=== PATIENT | male | born 1950 | race Caucasian/White ===

== ENCOUNTER 2023-02-02 00:12 | Inpatient (IN) | payer MEDICARE, MEDICAID ==
[~2023-02-02] VITALS: Ht 162.6 cm; Wt 72.6 kg
[2023-02-02] VITALS (72 sets, daily range): BP systolic 54–128; BP diastolic 29–82
[2023-02-02] MEDS ORDERED: DOPAMINE 400MG/250ML PREMIX 250 ML IV STA (00:35)
[2023-02-02] MEDS ORDERED: NOREPINEPHRINE 8MG/250ML PMX 250 ML IV STA ×2 (00:35→04:48)
[2023-02-02] MEDS ORDERED: PIPERACILLIN/TAZ 3.375G PREMIX 50 ML IV ONE (00:45)
[2023-02-02] MEDS ORDERED: SODIUM CHLORIDE 0.9% 1,000 ML IV ONE ×2 (00:45)
[2023-02-02 00:54] LABS: HEMATOCRIT. 21.6 % (42.0-52.0); HEMOGLOBIN. 7.1 g/dL (14.0-18.0); MEAN CORPUSCULAR HEMOGLOBIN 30.5 pg (28.0-32.0); MEAN CORPUSCULAR VOLUME 92.4 fL (80.0-94.0); MEAN PLATELET VOLUME 11.5 fl (7.4-10.4); PLATELET 240 x1000/uL (130-400); RED BLOOD CELL COUNT 2.34 mill/uL (4.7-6.1)
[2023-02-02 01:18] LABS: CHLORIDE 98 mEq/L (98-107)
[2023-02-02 01:53] LABS: INR 1.4; PARTIAL THROMBOPLASTIN TIME 36.1 sec (23.4-31.0); PROTHROMBIN TIME 15.1 sec (9.6-11.0)
[2023-02-02] MEDS ORDERED: VANCOMYCIN 1G PREMIX 200 ML IV NR (02:15)
[2023-02-02] MEDS ORDERED: KCL 20MEQ/100ML PREMIX 100 ML IV ONE (02:45)
[2023-02-02] MEDS ORDERED: POTASSIUM CHLORIDE 20MEQ TABLET SR PO ONE (02:45)
[2023-02-02 03:14] LABS: PLATELET ESTIMATE NORMAL
[2023-02-02] MEDS: SODIUM CHLORIDE 0.9% 1,000 ML IV SCH ×2 (03:30→08:29)
[2023-02-02] MEDS ORDERED: ACETAMINOPHEN 325MG TABLET PO PRN ×2 (03:30)
[2023-02-02] MEDS ORDERED: MORPHINE SULFATE 2 MG/ML CPJ (NOT FOR IM USE) IV PRN (03:30)
[2023-02-02] MEDS ORDERED: DOCUSATE SODIUM 100MG CAPSULE PO PRN (03:30)
[2023-02-02] MEDS ORDERED: IPRATROPIUM/ALBUTEROL 0.5-3(2.5)MG/3ML NEB HHN PRN (03:30)
[2023-02-02] MEDS ORDERED: MAGNESIUM/ALUMINUM HYDROXIDE/SIMETHICONE 30ML UDC PO PRN (03:30)
[2023-02-02] MEDS ORDERED: PIPERACILLIN/TAZOBACTAM 3.375 G in DEXTROSE 5% WATER 50 ML IV SCH (03:30)
[2023-02-02] MEDS ORDERED: HYDROCODONE/ACETAMINOPHEN 5/325MG TABLET PO PRN (03:30)
[2023-02-02] MEDS ORDERED: POTASSIUM CHLORIDE 20MEQ TABLET SR PO NR (03:45)
[2023-02-02] MEDS ORDERED: KCL 20MEQ/100ML X 3 FOR TOTAL KCL 60MEQ/200ML IV SCH (03:45)
[2023-02-02] MEDS ORDERED: POTASSIUM CHLORIDE INJ 60 MEQ in DEXT 5% WATER 250 ML IV ONE (03:45)
[2023-02-02 04:17] LABS: PHOSPHORUS 6.1 mg/dL (2.5-4.9)
[2023-02-02 04:47] LABS: D-DIMER 4.27 mg/L FEU (<0.50); INR 1.5; PROTHROMBIN TIME 16.1 sec (9.6-11.0)
[2023-02-02] MEDS ORDERED: NOREPINEPHRINE 8MG/250ML PMX 250 ML IV NR (05:00)
[2023-02-02 05:10] LABS: CREATINE KINASE MB FRACTION 5.2 ng/mL (0.5-3.6)
[2023-02-02 06:20] LABS: VITAMIN B12 SERUM > 2000.0 pg/mL (211-911)
[2023-02-02 06:22] LABS: FOLIC ACID (FOLATE) SERUM > 20.00 ng/mL (>5.38)
[2023-02-02] MEDS ORDERED: LORAZEPAM 2MG/ML CPJ IV NR (06:45)
[2023-02-02 08:16] LABS: FERRITIN 2428 ng/mL (22-322)
[2023-02-02] MEDS: PIPERACILLIN/TAZOBACTAM 3.375G in DEXT 5% WATER 50ML IV SCH ×3 (08:29→22:02)
[2023-02-02] MEDS: PHENYLEPHRINE 50 MG in DEXT 5% WATER 245 ML IV PRN ×4 (08:31→22:47)
[2023-02-02] MEDS ORDERED: PANTOPRAZOLE SODIUM 40 MG/VIAL IV SCH (09:00)
[2023-02-02] MEDS ORDERED: TAMSULOSIN HCL 0.4MG SR CAPSULE PO SCH (09:00)
[2023-02-02] MEDS ORDERED: NOREPINEPHRINE 8MG/250ML PMX 250 ML IV PRN (09:00)
[2023-02-02] MEDS: NOREPINEPHRINE 8 MG in DEXTROSE 5% WATER 250 ML IV PRN ×4 (09:26→22:48)
[2023-02-02] MEDS: VASOPRESSIN 20 UNIT in SODIUM CHLORIDE 0.9% 99 ML IV PRN ×2 (09:27→17:48)
[2023-02-02] MEDS ORDERED: POTASSIUM CHLORIDE INJ 40 MEQ in DEXT 5% WATER 250 ML IV ONE (10:00)
[2023-02-02] MEDS: KCL 20MEQ/100ML X 3 FOR TOTAL KCL 60MEQ/200ML IV SCH ×3 (10:39→15:09)
[2023-02-02 11:25] LABS: BG BASE EXCESS -14.5 mmol/L (-2.0-2.0); BG CARBOXYHEMOGLOBIN 0.1 % (0.5-1.5); BG DEOXYHEMOGLOBIN 1.1 % (0.0-5.0); BG FRACTION INSPIRED OXYGEN 40; BG HCO3 ACT 10.3 mmol/L (22.0-26.0); BG METHEMOGLOBIN 0.2 % (0.0-1.5); BG OXYGEN SATURATION 98.9 % (92.0-98.5); BG OXYHEMOGLOBIN 98.6 % (94.0-97.0); BG PCO2 21.6 mmHg (35.0-45.0); BG PH 7.295 (7.350-7.450); BG PO2 161.5 mmHg (75.0-100.0); BG SAMPLE SITE RIGHT RADIAL; BG TOTAL HEMOGLOBIN 9.9 g/dL (12.0-18.0); BG VENT MODE MASK - SIMPLE
[2023-02-02 12:23] LABS: HEMATOCRIT 29.8 % (42.0-52.0); MEAN CORPUSCULAR HEMOGLOBIN 31.1 pg (28.0-32.0); MEAN CORPUSCULAR VOLUME 92.6 fL (80.0-94.0); PLATELET 257 x1000/uL (130-400); RED BLOOD CELL COUNT 3.22 mill/uL (4.7-6.1); RED CELL DISTRIBUTION WIDTH 25.7 % (11.6-14.6)
[2023-02-02] MEDS ORDERED: MIRT-89 MT (14:24)
[2023-02-02] MEDS ORDERED: FAMO20TA8 MT (14:24)
[2023-02-02] MEDS ORDERED: TAMS-11 MT (14:24)
[2023-02-02] MEDS ORDERED: MIRT-90 PO (14:24)
[2023-02-02] MEDS ORDERED: FURO20TA4 PO (14:24)
[2023-02-02] MEDS ORDERED: METO-293 MT (14:24)
[2023-02-02] MEDS ORDERED: LORA-250 MT (14:24)
[2023-02-02] MEDS ORDERED: ONDA8TAB59 PO (14:24)
[2023-02-02] MEDS: METOCLOPRAMIDE HCL 10MG/2ML VIAL IV SCH ×3 (15:44→23:41)
[2023-02-02] MEDS ORDERED: NALOXONE HCL 0.4MG/ML VIAL IV PRN (15:45)
[2023-02-02 15:52] LABS: CREATINE KINASE MB FRACTION 5.2 ng/mL (0.5-3.6)
[2023-02-02] MEDS ORDERED: MIDODRINE HCL 5MG TABLET PO SCH (17:00)
[2023-02-02 18:37] LABS: HEMATOCRIT 27.4 % (42.0-52.0); HEMOGLOBIN 9.1 g/dL (14.0-18.0)
[2023-02-02 19:03] LABS: CLARITY URINE TURBID (CLEAR); COLOR URINE DARK YELLOW (YELLOW); KETONES URINE NEGATIVE (NEGATIVE); LEUKOCYTE ESTERASE URINE 1+ (NEGATIVE); NITRITE URINE POSITIVE (NEGATIVE); OCCULT BLOOD URINE 1+ (NEGATIVE); PH URINE 5.5 (4.5-8.0); PROTEIN URINE 2+ (NEGATIVE); SPECIFIC GRAVITY URINE 1.017 (1.005-1.030)
[2023-02-02] MEDS: PANTOPRAZOLE SODIUM 40 MG/VIAL IV SCH (22:02)
[2023-02-02] MEDS: SODIUM BICARBONATE 100 MEQ in DEXTROSE 5% WATER 1,000 ML IV SCH (22:02)
[2023-02-02] MEDS: MIDODRINE HCL 5MG TABLET PO SCH (22:03)
[2023-02-03] VITALS (94 sets, daily range): BP systolic 65–151; BP diastolic 34–119
[2023-02-03 00:56] LABS: HEMATOCRIT 28.6 % (42.0-52.0); HEMOGLOBIN 9.5 g/dL (14.0-18.0)
[2023-02-03] MEDS: NOREPINEPHRINE 8 MG in DEXTROSE 5% WATER 250 ML IV PRN ×3 (03:21→16:53)
[2023-02-03] MEDS: PHENYLEPHRINE 50 MG in DEXT 5% WATER 245 ML IV PRN ×4 (03:34→18:54)
[2023-02-03] MEDS: VASOPRESSIN 20 UNIT in SODIUM CHLORIDE 0.9% 99 ML IV PRN ×2 (04:58→16:52)
[2023-02-03 05:34] LABS: BASOPHILS % 0.2 % (0.0-2.0); EOSINOPHILS % 0.2 % (0.0-5.0); HEMATOCRIT. 26.6 % (42.0-52.0); HEMOGLOBIN. 9.1 g/dL (14.0-18.0); LYMPHOCYTES % 10.9 % (20.0-50.0); MEAN CORPUSCULAR HEMOGLOBIN 31.1 pg (28.0-32.0); MEAN CORPUSCULAR VOLUME 90.5 fL (80.0-94.0); MEAN PLATELET VOLUME 11.5 fl (7.4-10.4); MONOCYTES % 8.4 % (2.0-8.0); NEUTROPHILS % 80.3 % (40.0-76.0); PLATELET 242 x1000/uL (130-400); RED BLOOD CELL COUNT 2.94 mill/uL (4.7-6.1); RED CELL DISTRIBUTION WIDTH 26.7 % (11.6-14.6)
[2023-02-03 05:53] LABS: CHLORIDE 98 mEq/L (98-107)
[2023-02-03] MEDS: PIPERACILLIN/TAZOBACTAM 3.375G in DEXT 5% WATER 50ML IV SCH ×3 (05:58→22:12)
[2023-02-03] MEDS: MIDODRINE HCL 5MG TABLET PO SCH ×3 (05:59→22:13)
[2023-02-03] MEDS: METOCLOPRAMIDE HCL 10MG/2ML VIAL IV SCH ×3 (06:00→17:00)
[2023-02-03 06:16] LABS: HDL CHOLESTEROL 11 mg/dL (40-59); LDL CHOLESTEROL 97 mg/dL (5-100)
[2023-02-03] MEDS: PANTOPRAZOLE SODIUM 40 MG/VIAL IV SCH ×2 (08:14→21:15)
[2023-02-03] MEDS ORDERED: DEXTROSE 50% WATER 50ML SYRINGE IV PRN (08:45)
[2023-02-03 09:31] LABS: PLATELET ESTIMATE NORMAL
[2023-02-03] MEDS: SODIUM BICARBONATE 100 MEQ in DEXTROSE 5% WATER 1,000 ML IV SCH (10:20)
[2023-02-03] MEDS: BLOOD SUGAR DIAGNOSTIC STRIP TEST SCH ×3 (11:30→21:12)
[2023-02-03] MEDS ORDERED: VANCOMYCIN 750MG PREMIX 150 ML IV NR (12:00)
[2023-02-03 12:15] LABS: HEMATOCRIT 25.8 % (42.0-52.0); HEMOGLOBIN 8.8 g/dL (14.0-18.0)
[2023-02-03] MEDS: INSULIN LISPRO 100 UNITS/ML SUBCUT SCH ×3 (12:38→21:00)
[2023-02-03] MEDS ORDERED: POTASSIUM CHLORIDE 20MEQ TABLET SR PO NR (13:15)
[2023-02-03] MEDS ORDERED: FUROSEMIDE 40MG/4ML VIAL IVP NR (13:30)
[2023-02-03] MEDS: LORAZEPAM 2MG/ML CPJ IV PRN (14:15)
[2023-02-03] MEDS ORDERED: POTASSIUM CHLORIDE INJ 40 MEQ in DEXT 5% WATER 250 ML IV ONE (14:30)
[2023-02-03] MEDS: KCL 20MEQ/100ML X 2 FOR TOTAL KCL 40MEQ/200ML IV SCH ×2 (16:52→18:49)
[2023-02-04] VITALS (85 sets, daily range): BP systolic 60–149; BP diastolic 31–107
[2023-02-04] MEDS: METOCLOPRAMIDE HCL 10MG/2ML VIAL IV SCH ×5 (00:04→23:49)
[2023-02-04] MEDS: PHENYLEPHRINE 50 MG in DEXT 5% WATER 245 ML IV PRN ×5 (00:15→21:23)
[2023-02-04] MEDS: SODIUM BICARBONATE 100 MEQ in DEXTROSE 5% WATER 1,000 ML IV SCH ×2 (02:58→18:09)
[2023-02-04 05:27] LABS: BASOPHILS % 0.1 % (0.0-2.0); EOSINOPHILS % 0.2 % (0.0-5.0); HEMATOCRIT. 25.1 % (42.0-52.0); HEMOGLOBIN. 8.5 g/dL (14.0-18.0); MEAN CORPUSCULAR HEMOGLOBIN 30.9 pg (28.0-32.0); MEAN CORPUSCULAR VOLUME 91.1 fL (80.0-94.0); MEAN PLATELET VOLUME 11.6 fl (7.4-10.4); MONOCYTES % 7.5 % (2.0-8.0); NEUTROPHILS % 82.2 % (40.0-76.0); PLATELET 137 x1000/uL (130-400); RED BLOOD CELL COUNT 2.75 mill/uL (4.7-6.1); RED CELL DISTRIBUTION WIDTH 26.6 % (11.6-14.6)
[2023-02-04] MEDS: VASOPRESSIN 20 UNIT in SODIUM CHLORIDE 0.9% 99 ML IV PRN ×2 (05:36→18:10)
[2023-02-04] MEDS: MIDODRINE HCL 5MG TABLET PO SCH ×3 (05:54→21:23)
[2023-02-04] MEDS: PIPERACILLIN/TAZOBACTAM 3.375G in DEXT 5% WATER 50ML IV SCH ×3 (05:55→21:22)
[2023-02-04] MEDS: BLOOD SUGAR DIAGNOSTIC STRIP TEST SCH ×4 (06:30→21:23)
[2023-02-04] MEDS: INSULIN LISPRO 100 UNITS/ML SUBCUT SCH ×4 (07:00→21:00)
[2023-02-04] MEDS ORDERED: POTASSIUM CHLORIDE 20MEQ TABLET SR PO NR (07:45)
[2023-02-04] MEDS: PANTOPRAZOLE SODIUM 40 MG/VIAL IV SCH ×2 (08:39→21:21)
[2023-02-04] MEDS: NOREPINEPHRINE 8 MG in DEXTROSE 5% WATER 250 ML IV PRN ×3 (08:40→18:11)
[2023-02-04] MEDS ORDERED: POTASSIUM CHLORIDE INJ 40 MEQ in DEXT 5% WATER 500 ML IV NR (10:30)
[2023-02-04] MEDS ORDERED: LIDOCAINE HCL 1% 10 MG/ML 10ML VIAL ONE (10:49)
[2023-02-04] MEDS: FLUDROCORTISONE ACETATE 0.1MG TABLET PO SCH (10:59)
[2023-02-04] MEDS ORDERED: HYDROCORTISONE SOD SUCCINATE 100 MG/2 ML VIAL IV SCH (14:00)
[2023-02-04] MEDS: METHYLPREDNISOLONE SOD SUCC 40 MG/ML VIAL IV SCH ×2 (16:53→21:22)
[2023-02-04] MEDS: LORAZEPAM 2MG/ML CPJ IV PRN (21:41)
[2023-02-05] VITALS (97 sets, daily range): BP systolic 35–179; BP diastolic 16–104
[2023-02-05 01:42] LABS: HEMATOCRIT 21.3 % (42.0-52.0); HEMOGLOBIN 7.2 g/dL (14.0-18.0)
[2023-02-05] MEDS ORDERED: NOREPINEPHRINE 16 MG in DEXT 5% WATER 242 ML IV PRN (02:06)
[2023-02-05] MEDS: PHENYLEPHRINE 50 MG in DEXT 5% WATER 245 ML IV PRN (02:10)
[2023-02-05] MEDS: NOREPINEPHRINE 8 MG in DEXTROSE 5% WATER 250 ML IV PRN (02:11)
[2023-02-05] MEDS: NOREPINEPHRINE 32 MG in DEXT 5% WATER 218 ML IV PRN ×3 (04:56→21:32)
[2023-02-05] MEDS: PIPERACILLIN/TAZOBACTAM 3.375G in DEXT 5% WATER 50ML IV SCH ×3 (05:26→20:53)
[2023-02-05] MEDS: METOCLOPRAMIDE HCL 10MG/2ML VIAL IV SCH ×3 (05:26→18:00)
[2023-02-05] MEDS: VASOPRESSIN 20 UNIT in SODIUM CHLORIDE 0.9% 99 ML IV PRN ×2 (05:26→16:51)
[2023-02-05] MEDS: METHYLPREDNISOLONE SOD SUCC 40 MG/ML VIAL IV SCH ×3 (05:27→21:24)
[2023-02-05] MEDS: MIDODRINE HCL 5MG TABLET PO SCH ×3 (05:28→22:00)
[2023-02-05 05:41] LABS: HEMATOCRIT. 24.4 % (42.0-52.0); MEAN CORPUSCULAR HEMOGLOBIN 30.5 pg (28.0-32.0); MEAN CORPUSCULAR VOLUME 92.8 fL (80.0-94.0); MEAN PLATELET VOLUME 12.9 fl (7.4-10.4); PLATELET 113 x1000/uL (130-400); RED BLOOD CELL COUNT 2.63 mill/uL (4.7-6.1); RED CELL DISTRIBUTION WIDTH 22.8 % (11.6-14.6)
[2023-02-05] MEDS: BLOOD SUGAR DIAGNOSTIC STRIP TEST SCH ×4 (06:30→19:46)
[2023-02-05] MEDS: SODIUM BICARBONATE 100 MEQ in DEXTROSE 5% WATER 1,000 ML IV SCH (06:40)
[2023-02-05] MEDS: INSULIN LISPRO 100 UNITS/ML SUBCUT SCH ×4 (07:00→20:54)
[2023-02-05 07:52] LABS: BG BASE EXCESS -19.7 mmol/L (-2.0-2.0); BG CARBOXYHEMOGLOBIN 0.5 % (0.5-1.5); BG DEOXYHEMOGLOBIN 1.7 % (0.0-5.0); BG FRACTION INSPIRED OXYGEN 21; BG HCO3 ACT 4.9 mmol/L (22.0-26.0); BG METHEMOGLOBIN 0.3 % (0.0-1.5); BG OXYGEN SATURATION 98.3 % (92.0-98.5); BG OXYHEMOGLOBIN 97.5 % (94.0-97.0); BG PCO2 10.7 mmHg (35.0-45.0); BG PH 7.275 (7.350-7.450); BG PO2 118.5 mmHg (75.0-100.0); BG SAMPLE SITE RIGHT RADIAL; BG TOTAL HEMOGLOBIN 8.6 g/dL (12.0-18.0); BG VENT MODE ROOM AIR
[2023-02-05] MEDS: PHENYLEPHRINE 100 MG in DEXT 5% WATER 240 ML IV PRN ×2 (07:57→16:51)
[2023-02-05] MEDS ORDERED: SODIUM BICARBONATE 8.4% 1 MEQ/ML 50ML SYR IV NR (08:00)
[2023-02-05] MEDS ORDERED: ALBUMIN HUMAN 25GM/100ML (25%) IV NR (08:15)
[2023-02-05 08:16] LABS: PLATELET ESTIMATE SLIGHTLY DECREASED
[2023-02-05] MEDS: FLUDROCORTISONE ACETATE 0.1MG TABLET PO SCH (09:07)
[2023-02-05] MEDS: PANTOPRAZOLE SODIUM 40 MG/VIAL IV SCH ×2 (09:07→20:54)
[2023-02-05] MEDS: SODIUM BICARBONATE 150 MEQ in DEXTROSE 5% WATER 1,000 ML IV SCH (09:17)
[2023-02-05 09:25] LABS: D-DIMER 5.72 mg/L FEU (<0.50); FIBRINOGEN 316 mg/dL (200-400)
[2023-02-05 09:51] LABS: INR > 10.0
[2023-02-05 09:52] LABS: PARTIAL THROMBOPLASTIN TIME 109.9 sec (23.4-31.0); PROTHROMBIN TIME > 100.0 sec (9.6-11.0)
[2023-02-05] MEDS: LORAZEPAM 2MG/ML CPJ IV PRN (10:35)
[2023-02-05] MEDS ORDERED: VANCOMYCIN 750MG PREMIX 150 ML IV SCH (11:00)
[2023-02-05] MEDS ORDERED: VANCOMYCIN 1G PREMIX 200 ML IV SCH (11:00)
[2023-02-05] MEDS ORDERED: PHYTONADIONE 10MG/ML AMP SUBCUT NR (12:30)
[2023-02-05] MEDS: FUROSEMIDE 40MG/4ML VIAL IVP SCH (14:28)
[2023-02-06] VITALS (94 sets, daily range): BP systolic 60–188; BP diastolic 26–97
[2023-02-06] MEDS: PHENYLEPHRINE 100 MG in DEXT 5% WATER 240 ML IV PRN ×3 (00:15→19:25)
[2023-02-06] MEDS: LORAZEPAM 2MG/ML CPJ IV PRN (00:25)
[2023-02-06] MEDS: METOCLOPRAMIDE HCL 10MG/2ML VIAL IV SCH ×4 (00:32→18:20)
[2023-02-06] MEDS: SODIUM BICARBONATE 150 MEQ in DEXTROSE 5% WATER 1,000 ML IV SCH ×2 (01:52→18:20)
[2023-02-06] MEDS: VASOPRESSIN 20 UNIT in SODIUM CHLORIDE 0.9% 99 ML IV PRN (03:29)
[2023-02-06] MEDS: PIPERACILLIN/TAZOBACTAM 3.375G in DEXT 5% WATER 50ML IV SCH ×2 (05:14→13:39)
[2023-02-06] MEDS: METHYLPREDNISOLONE SOD SUCC 40 MG/ML VIAL IV SCH ×3 (05:14→22:10)
[2023-02-06] MEDS: MIDODRINE HCL 5MG TABLET PO SCH ×3 (05:14→22:05)
[2023-02-06] MEDS: BLOOD SUGAR DIAGNOSTIC STRIP TEST SCH ×4 (05:14→22:00)
[2023-02-06] MEDS: INSULIN LISPRO 100 UNITS/ML SUBCUT SCH ×4 (07:27→22:00)
[2023-02-06] MEDS: NOREPINEPHRINE 32 MG in DEXT 5% WATER 218 ML IV PRN (07:51)
[2023-02-06 08:01] LABS: BG BASE EXCESS -9.2 mmol/L (-2.0-2.0); BG CARBOXYHEMOGLOBIN 2.7 % (0.5-1.5); BG DEOXYHEMOGLOBIN 1.1 % (0.0-5.0); BG HCO3 ACT 14.7 mmol/L (22.0-26.0); BG METHEMOGLOBIN 0.3 % (0.0-1.5); BG OXYGEN SATURATION 98.9 % (92.0-98.5); BG OXYHEMOGLOBIN 95.9 % (94.0-97.0); BG PCO2 24.4 mmHg (35.0-45.0); BG PH 7.398 (7.350-7.450); BG PO2 125.1 mmHg (75.0-100.0); BG SAMPLE SITE RIGHT RADIAL; BG TOTAL HEMOGLOBIN 6.2 g/dL (12.0-18.0); BG VENT MODE NASAL CANNULA
[2023-02-06 09:10] LABS: PROTHROMBIN TIME 40.8 sec (9.6-11.0)
[2023-02-06 09:22] LABS: MEAN CORPUSCULAR HEMOGLOBIN 30.5 pg (28.0-32.0); MEAN CORPUSCULAR VOLUME 90.8 fL (80.0-94.0); MEAN PLATELET VOLUME 12.8 fl (7.4-10.4); RED BLOOD CELL COUNT 2.11 mill/uL (4.7-6.1); RED CELL DISTRIBUTION WIDTH 23.5 % (11.6-14.6)
[2023-02-06] MEDS: PANTOPRAZOLE SODIUM 40 MG/VIAL IV SCH ×2 (09:26→22:00)
[2023-02-06] MEDS: FUROSEMIDE 40MG/4ML VIAL IVP SCH (09:26)
[2023-02-06] MEDS: FLUDROCORTISONE ACETATE 0.1MG TABLET PO SCH (09:26)
[2023-02-06 09:39] LABS: HEMATOCRIT. 19.2 % (42.0-52.0); HEMOGLOBIN. 6.5 g/dL (14.0-18.0)
[2023-02-06 10:00] LABS: INR 4.2
[2023-02-06] MEDS ORDERED: PHYTONADIONE 10MG/ML AMP SUBCUT SCH (11:30)
[2023-02-06 11:51] LABS: PLATELET ESTIMATE MARKEDLY DECREASED
[2023-02-06 11:52] LABS: PLATELET 49 x1000/uL (130-400)
[2023-02-06] MEDS ORDERED: LORAZEPAM 2MG/ML CPJ IV PRN (15:30)
[2023-02-06 16:09] LABS: HEMATOCRIT 21.6 % (42.0-52.0); HEMOGLOBIN 7.3 g/dL (14.0-18.0)
[2023-02-06] MEDS: MEROPENEM 1,000 MG in SODIUM CHLORIDE 0.9% 100 ML IV SCH (18:20)
[2023-02-07] VITALS (98 sets, daily range): BP systolic 48–206; BP diastolic 16–147
[2023-02-07] MEDS: METOCLOPRAMIDE HCL 10MG/2ML VIAL IV SCH ×5 (00:37→23:25)
[2023-02-07] MEDS: PHENYLEPHRINE 100 MG in DEXT 5% WATER 240 ML IV PRN ×3 (04:03→20:50)
[2023-02-07 05:46] LABS: HEMATOCRIT. 22.6 % (42.0-52.0); HEMOGLOBIN. 7.6 g/dL (14.0-18.0); MEAN CORPUSCULAR HEMOGLOBIN 30.2 pg (28.0-32.0); MEAN CORPUSCULAR VOLUME 89.3 fL (80.0-94.0); MEAN PLATELET VOLUME 13.5 fl (7.4-10.4); RED BLOOD CELL COUNT 2.53 mill/uL (4.7-6.1); RED CELL DISTRIBUTION WIDTH 21.2 % (11.6-14.6)
[2023-02-07 05:54] LABS: INR 2.6; PROTHROMBIN TIME 26.7 sec (9.6-11.0)
[2023-02-07] MEDS: MIDODRINE HCL 5MG TABLET PO SCH ×3 (05:54→22:00)
[2023-02-07 05:56] LABS: PLATELET 42 x1000/uL (130-400)
[2023-02-07] MEDS: SODIUM BICARBONATE 150 MEQ in DEXTROSE 5% WATER 1,000 ML IV SCH ×2 (06:01→20:49)
[2023-02-07] MEDS: METHYLPREDNISOLONE SOD SUCC 40 MG/ML VIAL IV SCH ×3 (06:01→21:35)
[2023-02-07] MEDS: MEROPENEM 1,000 MG in SODIUM CHLORIDE 0.9% 100 ML IV SCH (06:01)
[2023-02-07] MEDS: BLOOD SUGAR DIAGNOSTIC STRIP TEST SCH ×4 (06:07→21:00)
[2023-02-07] MEDS: INSULIN LISPRO 100 UNITS/ML SUBCUT SCH ×4 (06:07→21:00)
[2023-02-07 07:52] LABS: PLATELET ESTIMATE DECREASED
[2023-02-07] MEDS: PANTOPRAZOLE SODIUM 40 MG/VIAL IV SCH ×2 (08:46→20:49)
[2023-02-07] MEDS: FLUDROCORTISONE ACETATE 0.1MG TABLET PO SCH (08:48)
[2023-02-07] MEDS ORDERED: PHYTONADIONE 10MG/ML AMP SUBCUT NR (09:00)
[2023-02-07] MEDS ORDERED: FUROSEMIDE 100MG/10ML VIAL IVP SCH (09:00)
[2023-02-07] MEDS: NOREPINEPHRINE 32 MG in DEXT 5% WATER 218 ML IV PRN ×2 (09:18→20:50)
[2023-02-07] MEDS: MORPHINE SULFATE 2 MG/ML CPJ (NOT FOR IM USE) IV PRN ×2 (10:02→21:36)
[2023-02-07 11:12] LABS: CHLORIDE 77 mEq/L (98-107)
[2023-02-07] MEDS ORDERED: VANCOMYCIN 750MG PREMIX 150 ML IV NR (15:00)
[2023-02-07 15:03] LABS: HEPATITIS B SURFACE ANTIGEN NEGATIVE
[2023-02-07] MEDS: MEROPENEM 500MG in NORMAL SALINE 50ML IV SCH (20:49)
[2023-02-08] VITALS (92 sets, daily range): BP systolic 64–169; BP diastolic 32–88
[2023-02-08] MEDS: MORPHINE SULFATE 2 MG/ML CPJ (NOT FOR IM USE) IV PRN ×4 (02:41→20:18)
[2023-02-08 04:34] LABS: HEMATOCRIT. 25.5 % (42.0-52.0); HEMOGLOBIN. 8.5 g/dL (14.0-18.0); MEAN CORPUSCULAR HEMOGLOBIN 30.2 pg (28.0-32.0); MEAN CORPUSCULAR VOLUME 90.4 fL (80.0-94.0); MEAN PLATELET VOLUME 14.4 fl (7.4-10.4); RED BLOOD CELL COUNT 2.82 mill/uL (4.7-6.1)
[2023-02-08 04:46] LABS: CHLORIDE 74 mEq/L (98-107)
[2023-02-08] MEDS: MIDODRINE HCL 5MG TABLET PO SCH ×3 (06:00→20:19)
[2023-02-08] MEDS: BLOOD SUGAR DIAGNOSTIC STRIP TEST SCH ×4 (06:09→20:40)
[2023-02-08] MEDS: INSULIN LISPRO 100 UNITS/ML SUBCUT SCH ×4 (06:09→20:40)
[2023-02-08] MEDS: METHYLPREDNISOLONE SOD SUCC 40 MG/ML VIAL IV SCH ×3 (06:39→20:19)
[2023-02-08] MEDS: METOCLOPRAMIDE HCL 10MG/2ML VIAL IV SCH ×3 (06:39→17:06)
[2023-02-08] MEDS: PHENYLEPHRINE 100 MG in DEXT 5% WATER 240 ML IV PRN ×2 (06:41→16:49)
[2023-02-08 08:01] LABS: PLATELET 38 x1000/uL (130-400); PLATELET ESTIMATE MARKEDLY DECREASED
[2023-02-08] MEDS: MEROPENEM 500MG in NORMAL SALINE 50ML IV SCH ×2 (08:05→20:19)
[2023-02-08] MEDS: PANTOPRAZOLE SODIUM 40 MG/VIAL IV SCH ×2 (08:06→20:18)
[2023-02-08] MEDS: FLUDROCORTISONE ACETATE 0.1MG TABLET PO SCH (08:07)
[2023-02-08] MEDS ORDERED: FUROSEMIDE 40MG/4ML VIAL IVP SCH (09:00)
[2023-02-08] MEDS ORDERED: CALCIUM GLUCONATE 1,000 MG in DEXT 5% WATER 90 ML IV ONE (09:15)
[2023-02-08] MEDS ORDERED: CALCIUM GLUCONATE 1GM PREMIX 50 ML IV NR (10:00)
[2023-02-08] MEDS ORDERED: NALOXONE HCL 0.4MG/ML VIAL IV PRN (11:45)
[2023-02-08] MEDS: SODIUM BICARBONATE 150 MEQ in DEXTROSE 5% WATER 1,000 ML IV SCH (12:41)
== END 2023-02-09 03:30 | DRG 871 ==
LOC: ER 00:12 → MICUSO 01:56 → EDBEDREQSVC 02:57 → EDBEDREQTM 02:57 → EDBEDREQ 02:57 → MICUSO 06:00
PROVIDERS: ADMIT Internal Medicine; ATTEND Internal Medicine
PROC: 30233N1 Transfusion of Nonautologous Red Blood Cells into Peripheral Vein, Percutaneous Approach (ICD-10-PCS; principal; 2023-02-02)
PROC: 02HV33Z Insertion of Infusion Device into Superior Vena Cava, Percutaneous Approach (ICD-10-PCS; 2023-02-04)
PROC: B548ZZA Ultrasonography of Superior Vena Cava, Guidance (ICD-10-PCS; 2023-02-04)
PROC: 30243K1 Transfusion of Nonautologous Frozen Plasma into Central Vein, Percutaneous Approach (ICD-10-PCS; 2023-02-05)
DX: A41.9 Sepsis, unspecified organism (principal); D65 Disseminated intravascular coagulation [defibrination syndrome]; J96.00 Acute respiratory failure, unspecified whether with hypoxia or hypercapnia; N17.0 Acute kidney failure with tubular necrosis; R65.21 Severe sepsis with septic shock; G92.8 Other toxic encephalopathy; E43 Unspecified severe protein-calorie malnutrition; C22.1 Intrahepatic bile duct carcinoma; E72.20 Disorder of urea cycle metabolism, unspecified; K92.2 Gastrointestinal hemorrhage, unspecified; E87.20 Acidosis, unspecified; K80.21 Calculus of gallbladder without cholecystitis with obstruction; E87.1 Hypo-osmolality and hyponatremia; R18.8 Other ascites; Z66 Do not resuscitate; I12.9 Hypertensive chronic kidney disease with stage 1 through stage 4 chronic kidney disease, or unspecified chronic kidney disease; N18.9 Chronic kidney disease, unspecified; D63.1 Anemia in chronic kidney disease; E87.6 Hypokalemia; N40.0 Benign prostatic hyperplasia without lower urinary tract symptoms; Z85.05 Personal history of malignant neoplasm of liver; Z51.11 Encounter for antineoplastic chemotherapy; Z68.27 Body mass index [BMI] 27.0-27.9, adult
CPT/HCPCS: 36415; 36573; 36600; 71045; 74176; 76700; 80048; 80053; 80061; 80076; 80202; 81003; 82105; 82140; 82270; 82375; 82550; 82553; 82607; 82728; 82746; 82805; 82962; 83036; 83540; 83550; 83605; 83615; 83735; 84100; 84145; 84439; 84443; 84481; 84484; 84550; 85014; 85018; 85025; 85027; 85044; 85049; 85362; 85379; 85384; 86301; 86705; 86709; 86803; 86850; 86900; 86920; 86927; 87015; 87045; 87340; 87427; 87449; 89055; 92610; 93005; 93306; 93880; 93970; 97162; 99291; A6261; C1725; C9113; J0610; J1265; J1815; J1940; J2060; J2185; J2270; J2370; J2543; J2765; J2920; J3370; J3430; J3480; J3490; J7030; J7050; J7060; J7070; P9016; P9017; P9047; A4315